=== PATIENT | male | born 1980 | race Caucasian/White ===

== ENCOUNTER 2025-08-26 11:43 | Inpatient (IN) | payer OTHER ==
[~2025-08-26] VITALS: Ht 175.3 cm; Wt 80.3 kg
[2025-08-26 11:49] VITALS: O2SAT 97
[2025-08-26 12:07] LABS: BASOPHILS % 0.6 % (0.0-2.0); EOSINOPHILS % 0.2 % (0.0-5.0); HEMATOCRIT. 46.1 % (42.0-52.0); HEMOGLOBIN. 15.3 g/dL (14.0-18.0); LYMPHOCYTES % 7.2 % (20.0-50.0); MEAN PLATELET VOLUME 6.6 fl (7.4-10.4); MONOCYTES % 9.1 % (2.0-8.0); NEUTROPHILS % 82.9 % (40.0-76.0); PLATELET 515 x1000/uL (130-400); RED BLOOD CELL COUNT 5.39 mill/uL (4.7-6.1); RED CELL DISTRIBUTION WIDTH 13.7 % (11.6-14.6)
[2025-08-26 12:23] LABS: CREATININE 1.3 mg/dL (0.6-1.3)
[2025-08-26 12:24] LABS: UREA NITROGEN BLOOD 15 mg/dL (9-23)
[2025-08-26 12:25] LABS: ASPARTATE AMINOTRANSFERASE 15 IU/L (<34)
[2025-08-26 12:26] LABS: BILIRUBIN DIRECT 0.2 mg/dL (<=3.0); BILIRUBIN TOTAL 0.6 mg/dL (0.1-1.0); PROTEIN TOTAL 8.4 g/dL (6.0-8.3)
[2025-08-26] MEDS: MAGNESIUM/ALUMINUM HYDROXIDE/SIMETHICONE 30ML UDC PO SCH (13:49)
[2025-08-26] MEDS: ONDANSETRON 4MG ODT PO SCH (13:50)
[2025-08-26] MEDS: FAMOTIDINE 20MG TABLET PO SCH (13:50)
[2025-08-26] MEDS: ACETAMINOPHEN 325MG TABLET PO SCH (13:50)
[2025-08-26] MEDS ORDERED: ONDA4TAB50 PO (15:12)
[2025-08-26 15:36] LABS: COLOR URINE DARK YELLOW (YELLOW); GLUCOSE URINE NEGATIVE (NEGATIVE); KETONES URINE NEGATIVE (NEGATIVE); LEUKOCYTE ESTERASE URINE NEGATIVE (NEGATIVE); NITRITE URINE NEGATIVE (NEGATIVE); OCCULT BLOOD URINE NEGATIVE (NEGATIVE); PH URINE 5.5 (4.5-8.0); PROTEIN URINE 1+ (NEGATIVE); SPECIFIC GRAVITY URINE 1.028 (1.005-1.030); UROBILINOGEN URINE 1.0 E.U./dL (0.2-1.0)
[2025-08-26 16:59] LABS: CLARITY URINE SL HAZY (CLEAR)
[2025-08-26 17:01] LABS: RBC URINE NONE SEEN /hpf (0-2); WBC URINE NONE SEEN /hpf (0-2)
[2025-08-26 17:02] LABS: SQUAMOUS EPITHELIAL CELL URINE RARE /lpf (RARE/1+)
[2025-08-26 17:03] LABS: BACTERIA URINE NONE SEEN
[2025-08-26 17:06] LABS: MUCUS URINE 2+ /lpf (NONE/TRACE)
[2025-08-26 21:46] LABS: LACTATE DEHYDROGENASE 234 IU/L (120-246)
[2025-08-26] MEDS ORDERED: IOHEXOL-300 100 ML BOTTLE ONE (23:32)
[2025-08-27] VITALS (16 sets, daily range): BP systolic 117–147; BP diastolic 68–90; PULSE 75–94; RESP 12–20; TEMP 36.2–36.8; O2SAT 95–100
[2025-08-27] MEDS ORDERED: NALOXONE HCL 0.4MG/ML VIAL IV PRN (02:30)
[2025-08-27] MEDS: PIPERACILLIN/TAZO 3.375G/50ML 50 ML IV SCH (07:12)
[2025-08-27] MEDS: ONDANSETRON HCL 4MG/2ML INJ IV PRN (08:05)
[2025-08-27 11:22] LABS: BASOPHILS % 0.3 % (0.0-2.0); EOSINOPHILS % 0.2 % (0.0-5.0); HEMATOCRIT. 42.5 % (42.0-52.0); HEMOGLOBIN. 14.5 g/dL (14.0-18.0); LYMPHOCYTES % 9.0 % (20.0-50.0); MEAN PLATELET VOLUME 7.0 fl (7.4-10.4); MONOCYTES % 9.5 % (2.0-8.0); NEUTROPHILS % 81.0 % (40.0-76.0); PLATELET 515 x1000/uL (130-400); RED BLOOD CELL COUNT 5.06 mill/uL (4.7-6.1); RED CELL DISTRIBUTION WIDTH 13.4 % (11.6-14.6)
[2025-08-27 11:29] LABS: INR 1.2
[2025-08-27 11:31] LABS: CREATININE 1.1 mg/dL (0.6-1.3); UREA NITROGEN BLOOD 20 mg/dL (9-23)
[2025-08-27] MEDS ORDERED: HYDRALAZINE 20MG/ML VIAL IV PRN (11:45)
[2025-08-27] MEDS ORDERED: HYDRALAZINE 10 MG in SODIUM CHLORIDE 0.9% 49.5 ML IV PRN (12:00)
[2025-08-27] MEDS ORDERED: LIDOCAINE HCL 1% 10 MG/ML 10ML VIAL ONE (12:40)
[2025-08-27] MEDS ORDERED: FENTANYL CITRATE/PF 50MCG/ML 2ML VIAL ONE (12:41)
[2025-08-27] MEDS: FENTANYL CITRATE/PF 50MCG/ML 2ML VIAL IV ONE (13:15)
[2025-08-27] MEDS: MORPHINE SULFATE 2 MG/ML INJ (NOT FOR IM USE) IV PRN (14:49)
[2025-08-27] MEDS: DEXT 5%/0.45% NACL 1000ML 1,000 ML IV SCH (14:50)
[2025-08-27] MEDS: PANTOPRAZOLE SODIUM 40 MG/VIAL IV SCH (14:55)
[2025-08-27] MEDS: HYDROCODONE/ACETAMINOPHEN 5/325MG TABLET PO PRN (21:08)
[2025-08-28] VITALS: BP 119/84; PULSE 90; RESP 17; TEMP 36.3; O2SAT 97
[2025-08-28 04:00] VITALS: BP 128/82; PULSE 85; RESP 20; TEMP 36.8; O2SAT 98
[2025-08-28 07:08] LABS: BASOPHILS % 0.3 % (0.0-2.0); EOSINOPHILS % 0.6 % (0.0-5.0); HEMATOCRIT. 42.2 % (42.0-52.0); HEMOGLOBIN. 14.2 g/dL (14.0-18.0); LYMPHOCYTES % 11.6 % (20.0-50.0); MEAN PLATELET VOLUME 7.2 fl (7.4-10.4); MONOCYTES % 8.5 % (2.0-8.0); NEUTROPHILS % 79.0 % (40.0-76.0); PLATELET 454 x1000/uL (130-400); RED BLOOD CELL COUNT 4.97 mill/uL (4.7-6.1); RED CELL DISTRIBUTION WIDTH 13.4 % (11.6-14.6)
[2025-08-28 07:24] LABS: INR 1.2
[2025-08-28 07:31] LABS: UREA NITROGEN BLOOD 14 mg/dL (9-23)
[2025-08-28 07:32] LABS: CREATININE 1.1 mg/dL (0.6-1.3)
[2025-08-28 07:34] LABS: PROTEIN TOTAL 7.2 g/dL (6.0-8.3)
[2025-08-28 07:35] LABS: ASPARTATE AMINOTRANSFERASE 14 IU/L (<34); BILIRUBIN DIRECT 0.2 mg/dL (<=3.0); BILIRUBIN TOTAL 0.5 mg/dL (0.1-1.0); PHOSPHORUS 4.2 mg/dL (2.5-4.9)
[2025-08-28 08:00] VITALS: BP 125/77; PULSE 78; RESP 18; TEMP 36.3; O2SAT 97
[2025-08-28 18:09] VITALS: BP 112/75; PULSE 83; RESP 18; TEMP 98.2
[2025-08-28 20:00] VITALS: BP 119/77; PULSE 77; RESP 20; TEMP 36.3; O2SAT 99
== END 2025-08-28 21:40 | disposition short-term general hospital (02) | DRG 444 ==
LOC: ER 11:43 → EDBEDREQ 21:02 → ER 21:30 → ENRESERV 23:18 → 6EST 23:45
PROVIDERS: ADMIT Family Medicine Adult Medicine; ATTEND Family Medicine Adult Medicine
PROC: 0F943ZX Drainage of Gallbladder, Percutaneous Approach, Diagnostic (ICD-10-PCS; principal; 2025-08-27)
DX: K81.0 Acute cholecystitis (principal); K75.0 Abscess of liver; I10 Essential (primary) hypertension; Z90.49 Acquired absence of other specified parts of digestive tract
CPT/HCPCS: 36415; 74177; 76705; 77012; 80048; 80076; 81003; 83605; 83615; 83735; 84100; 84145; 85025; 87077; 87186; 93970; 96365; 96375; 99152; 99153; 99285; C1729; C1769; J2003; J2270; J2405; J2470; J2543; J3010; L8514; Q0162; Q9967; G0500